=== PATIENT | female | born 1980 | race Caucasian/White ===

== ENCOUNTER 2020-09-20 19:46 | Inpatient (IN) | payer OTHER ==
[~2020-09-20] VITALS: Ht 157.5 cm; Wt 56.7 kg
[2020-09-21] MEDS ORDERED: FOLIC ACID1 MG PO (00:04)
[2020-09-21] MEDS ORDERED: EFFEXOR 37.537.5 MG PO (00:04)
[2020-09-21] MEDS ORDERED: IBUPROFEN800 MG PO (00:05)
[2020-09-21] MEDS ORDERED: PHENERGAN 25 MG25 M1 PO (00:05)
[2020-09-21] MEDS ORDERED: SEROQUEL50 MG PO (00:05)
[2020-09-21] MEDS ORDERED: VISTARIL 50 MG50 MG PO (00:06)
[2020-09-21] MEDS ORDERED: MAGNESIUM OXID400 M1 PO (00:07)
[2020-09-21] MEDS ORDERED: VITAMIN B-1100 M1 PO (00:08)
[2020-09-21] MEDS ORDERED: BUTALB-ACETAMI1 EACH PO ×2 (00:11→03:01)
[2020-09-21] MEDS ORDERED: VISTARIL50 MG PO (03:02)
[2020-09-21 10:49] LABS: HEMOGLOBIN 13.6 gm/dl (12.3-15.3); RED BLOOD COUNT 4.32 M/UL (4.00-5.10); WHITE BLOOD COUNT 3.4 K/UL (4.5-11.0)
[2020-09-21 11:40] LABS: BUN/CREATININE RATIO 8 (0-10)
[2020-09-22 05:35] LABS: HEMOGLOBIN 12.2 gm/dl (12.3-15.3); RED BLOOD COUNT 3.92 M/UL (4.00-5.10); WHITE BLOOD COUNT 3.9 K/UL (4.5-11.0)
[2020-09-22 05:57] LABS: BUN/CREATININE RATIO 5 (0-10)
[2020-09-22 10:13] LABS: HBSAG SCREEN Negative (Negative); HEP A AB, IGM Negative (Negative); HEP B CORE AB, IGM Negative (Negative); HEP C VIRUS AB <0.1 (0.0-0.9)
[2020-09-23 09:14] LABS: HEMOGLOBIN 13.7 gm/dl (12.3-15.3); RED BLOOD COUNT 4.3 M/UL (4.00-5.10); WHITE BLOOD COUNT 4.6 K/UL (4.5-11.0)
[2020-09-23 09:33] LABS: BUN/CREATININE RATIO 8 (0-10)
[2020-09-24 07:17] LABS: HEMOGLOBIN 12.6 gm/dl (12.3-15.3); RED BLOOD COUNT 4.11 M/UL (4.00-5.10); WHITE BLOOD COUNT 3.9 K/UL (4.5-11.0)
[2020-09-24 07:52] LABS: BUN/CREATININE RATIO 15 (0-10)
[2020-09-25 06:20] LABS: HEMOGLOBIN 13.4 gm/dl (12.3-15.3); RED BLOOD COUNT 4.25 M/UL (4.00-5.10)
[2020-09-25 06:49] LABS: BUN/CREATININE RATIO 16 (0-10)
== END 2020-09-25 18:48 | disposition home or self-care (01) | DRG 177 ==
LOC: PROG CARE 19:46 → MED SURG 4 23:02 → PROG CARE 23:02 → MED SURG 4 09-23 16:41
PROVIDERS: Internal Medicine Infectious Disease; ADMIT Internal Medicine
PROC: 8E0ZXY6 Isolation (ICD-10-PCS; principal; 2020-09-20)
DX: U07.1 COVID-19 (principal); J12.82 Pneumonia due to coronavirus disease 2019; N39.0 Urinary tract infection, site not specified; F10.232 Alcohol dependence with withdrawal with perceptual disturbance; E87.1 Hypo-osmolality and hyponatremia; D61.818 Other pancytopenia; G31.2 Degeneration of nervous system due to alcohol; E87.6 Hypokalemia; E83.42 Hypomagnesemia; D69.59 Other secondary thrombocytopenia; R74.01 Elevation of levels of liver transaminase levels; Z79.899 Other long term (current) drug therapy
CPT/HCPCS: 36415; 71045; 76705; 80048; 80053; 80074; 81001; 83735; 84100; 84132; 85025; 85027; 87086; 93005; J1630; J2060; J3475; J7030; Q0177